=== PATIENT | male | born 1990 | race African-American/Black ===

== ENCOUNTER → 2025-01-10 | Emergency (ER) | payer MEDICAID, OTHER ==
[~2025-01-10] VITALS: Ht 182.9 cm; Wt 79.4 kg
[~2025-01-10] MED LIST: AMOX500T2 PO; AZIT250T13 PO; IBUP-1957 PO; IBUPROFEN 800 MG TABLET ONE; NAPR-1009 PO
[2025-01-10] MEDS: IBUPROFEN 800 MG TABLET PO ONE (21:23)
[2025-01-10 22:28] VITALS: BP 123/73; TEMP 98; O2SAT 99
== END | disposition home or self-care (01) ==
LOC: ER 20:55
DX: J20.9 Acute bronchitis, unspecified (principal); Z87.891 Personal history of nicotine dependence
CPT/HCPCS: 71045; A4606; A4663

== ENCOUNTER 2025-01-14 08:24 | Emergency (ER) | payer MEDICAID ==
[~2025-01-14] VITALS: Ht 182.9 cm; Wt 79.4 kg
[~2025-01-14 08:24] MED LIST changes: -AMOX500T2 PO; -IBUP-1957 PO; -IBUPROFEN 800 MG TABLET ONE
[2025-01-14] MEDS: IV NORMAL SALINE 1000 ML BAG IV ONE (09:16)
[2025-01-14] MEDS ORDERED: ACETAMINOPHEN 500 MG TABLET ONE (09:42)
[2025-01-14] MEDS: IBUPROFEN 600 MG TABLET PO ONE (09:43)
[2025-01-14] MEDS ORDERED: IBUPROFEN 600 MG TABLET ONE (09:43)
[2025-01-14] MEDS: ACETAMINOPHEN 500 MG TABLET PO ONE (09:43)
[2025-01-14 10:08] LABS: BASOPHILS % (AUTO) 0.2 % (0.0-2.0); EOSINOPHILS # (AUTO) 0.3 K/uL (0.0-0.7); EOSINOPHILS % (AUTO) 3.1 % (0.0-7.0); HEMATOCRIT 41.6 % (36.7-47.1); HEMOGLOBIN 14.4 g/dL (12.5-16.3); LYMPHOCYTES % (AUTO) 11.4 % (20.5-51.5); MEAN CORPUSCULAR HEMOGLOBIN 31.7 uug (23.8-33.4); MEAN CORPUSCULAR HGB CONC 35 g/dL (32.5-36.3); MEAN CORPUSCULAR VOLUME 91.9 fL (73.0-96.2); MONOCYTES # (AUTO) 1.1 K/uL (0.1-1.30); MONOCYTES % (AUTO) 12.1 % (0.0-11.0); NEUTROPHILS # (AUTO) 6.6 K/uL (1.8-8.9); NEUTROPHILS % (AUTO) 73.2 % (38.5-71.5); PLATELET COUNT (AUTO) 277 K/uL (152-348); RED BLOOD CELL COUNT(AUTO) 4.52 MIL/uL (4.06-5.63); RED CELL DISTRIBUTION WIDTH 13.3 % (12.1-16.2)
[2025-01-14 10:10] LABS: DIFFERENTIAL COMMENT 1
[2025-01-14 10:16] LABS: POTASSIUM 3.9 mmol/L (3.5-5.1)
[2025-01-14 10:22] LABS: ALBUMIN 3.1 g/dL (3.4-5.0); BILIRUBIN,DIRECT 0.2 mg/dL (0.0-0.2); BILIRUBIN,TOTAL 0.4 mg/dL (0.2-1.0); TOTAL PROTEIN, SERUM 6.7 g/dL (6.4-8.2)
[2025-01-14] MEDS ORDERED: AMOX500T2 PO (11:09)
[2025-01-14] MEDS ORDERED: IBUP-1957 PO (11:09)
[2025-01-14] MEDS ORDERED: KETOROLAC TROMETHAMINE 30 MG INJ ONE (11:14)
[2025-01-14] MEDS: KETOROLAC TROMETHAMINE 30 MG INJ IM ONE (11:23)
[2025-01-14 11:27] VITALS: BP 133/83; O2SAT 100
== END 2025-01-14 11:28 | disposition home or self-care (01) ==
LOC: ER 08:24
DX: J20.9 Acute bronchitis, unspecified (principal); Z20.822 Contact with and (suspected) exposure to COVID-19
CPT/HCPCS: 99285; 96360; 71045; 87426; 87804 ×2; 80076; 80048; 85025; 85379; 36415; 93005; J7040; A4606; A4663; A9150; J1885